=== PATIENT | male | born 1975 | race American Indian/Alaskan Native ===

== ENCOUNTER 2017-08-31 19:25 | Emergency (ER) | payer OTHER ==
[2017-08-31] MEDS ORDERED: HYDROmorphone 0.5 MG/0.5 ML SYRINGE IVPUSH STA (20:07)
[2017-08-31] MEDS ORDERED: Ondansetron 4 MG/2 ML SDV IVPUSH ONE (20:07)
[2017-08-31] MEDS ORDERED: Iopamidol 612 MG/ML 150 ML Bottle IVPUSH ONE (20:11)
[2017-08-31] MEDS ORDERED: Sodium Chloride 0.9% 1,000 ML IV SCH (20:15)
[2017-08-31] MEDS: Sodium Chloride 0.9% 10 ML Syringe FLUSH PRN ×2 (20:23→20:54)
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
[2017-08-31] MEDS ORDERED: Lidocaine 1% with EPINEPHrine 1:100,000 20 ML MDV INJECT ONE (21:45)
[2017-08-31] MEDS ORDERED: Bupivacaine 0.5% 10 ML SDV INJECT ONE (21:45)
[2017-08-31] MEDS ORDERED: Diphtheria,Pertussis(Acell),Tetanus Vaccine 0.5 ML SDV IM ONE (22:14)
[2017-08-31] MEDS ORDERED: Cephalexin 500 MG Cap PO ONE (22:33)
--- NOTE | 2017-09-01 15:28 | CR ---
Left femur: AP and lateral views of the left femur were obtained. Comparison: No previous study. Joint space within the hip is maintained. Mild joint space narrowing is noted within the knee. No fracture or other bony abnormality is seen. Impression: 1. Mild joint space narrowing appears to be present within the knee. 2. No acute abnormality is seen on left femur study. Diagnostic code #2
--- NOTE | 2017-09-01 15:28 | CR ---
Right knee: AP, lateral and sunrise patellar views of the right knee were obtained. Comparison: No previous study. Mild medial joint space narrowing is seen. Lateral joint space is preserved. Patellofemoral joint appears within normal limits. No fracture or other bony abnormality is seen. No joint effusion is seen. Impression: 1. Mild medial joint space narrowing. 2. Nothing acute is seen on right knee exam. Diagnostic code #2
--- NOTE | 2017-09-01 15:28 | CT ---
CT cervical spine Technique: Multiple axial sections were obtained from above C1 inferiorly to the bottom of T2. Reconstructed sagittal and coronal images were reviewed. Comparison: No prior cervical spine imaging. Findings: Mild disc space narrowing is noted at C3-C4 with anterior osteophytes. Other discs are maintained. Vertebral body heights are maintained. No fracture is identified within the vertebral bodies or within the posterior arches. No bony central or bony neural foraminal stenosis is seen. No abnormal subluxation is seen on the reconstructed sagittal images. Impression: 1. Slight degenerative changes C3-C4. 2. Nothing acute is appreciated on CT study of the cervical spine. Diagnostic code #2 I agree with preliminary report issued by [facility] ([facility] preliminary report dictated on 08/31/17, 10:14 PM Central Time)
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
--- NOTE | 2017-09-01 15:29 | CR ---
Chest: Frontal view of the chest was obtained. Comparison: No prior chest x-ray, previous chest CT performed on the same day (8:50 PM). Heart size and mediastinum are normal. Lungs are clear. Bony structures appear grossly intact. Impression: 1. Nothing acute is seen on frontal chest x-ray. Diagnostic code #1
--- NOTE | 2017-09-01 15:29 | CT ---
CT chest Technique: Multiple axial sections were obtained from above the lung apices inferiorly through the lung bases. Intravenous contrast was utilized. Comparison: No prior chest imaging. Findings: Mediastinum and hilar regions are unremarkable. No pericardial effusion is seen. Lungs are clear with no pulmonary contusion. No pleural effusions are seen. No pneumothorax is identified. Bone window settings were reviewed which show no discrete rib abnormality. Thoracic spine shows no discrete abnormality. Reconstructed sagittal images of the sternum appear intact. Impression: 1. Nothing acute is identified on CT study of the chest. Diagnostic code #1 I agree with preliminary report issued by [facility] ([facility] preliminary report dictated on 08/31/17, 10:14 PM Central Time) CT abdomen and pelvis Technique: Multiple axial sections were obtained from above the dome of the diaphragm inferiorly through the pubic symphysis. Intravenous contrast was utilized. No oral contrast was utilized. Findings: Liver shows no focal parenchymal abnormality. Spleen appears within normal limits. Adrenal glands show no nodule. Kidneys show symmetric contrast enhancement without hydronephrosis or mass. Pancreas is unremarkable. Aorta shows no aneurysmal dilatation. No retroperitoneal adenopathy or mesenteric abnormalities are seen. Appendix is seen which is normal. No pelvic mass or adenopathy is seen. Delayed images show contrast within the distal ureters and within the bladder. No free fluid or inflammatory change is seen. 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 No acute osseous abnormality is seen. Impression: 1. Nothing acute is seen on CT study of the abdomen and pelvis. Diagnostic code #2 I agree with preliminary report issued by [facility] ([facility] preliminary report dictated on 08/31/17, 10:15 PM Central Time)
== END 2017-08-31 23:20 | disposition home or self-care (01) ==
LOC: JD.ED 19:25
DX: S71.112A Laceration without foreign body, left thigh, initial encounter (principal); Z23 Encounter for immunization; V83.5XXA Driver of special industrial vehicle injured in nontraffic accident, initial encounter
CPT/HCPCS: 12004; 36415; 70450; 71045; 71260; 72125; 73552; 73562; 74177; 80053; 81001; 85007; 85027; 85610; 85730; 90471; 90715; 96361; 96374; 96375; 99285; A9270; J1170; J2405; J3490; J7040; J7050; Q9967